=== PATIENT | female | born 1985 | race Caucasian/White ===

== ENCOUNTER 2016-03-17 12:30 | Emergency (ER) | payer OTHER ==
[~2016-03-17] VITALS: Ht 170.2 cm; Wt 86.2 kg
[~2016-03-17 12:30] MED LIST: ADVAIR DISKU 11 UNIT INH; AVELOX400 MG PO; FLOVENT HF0.044 MG/A INH; FLOVENT HF0.11 MG/Ac INH; FLUVOXAMINE MA100 MG PO; GABAPENTIN300 MG PO; IBUPROFEN800 M1 PO; METHADONE10 MG/1 M2 PO; METHIMAZOLE5 MG PO; MOTRIN800 MG PO; NEURONTIN600 M1 PO; PERCOCET 5-3251 EACH PO; PROAIR HFA8.5 GM INH; QUETIAPINE FUM400 MG PO; QUETIAPINE FUMA50 MG PO; TYLENOL #31 TAB PO
[2016-03-17 12:40] VITALS: BP 104/63
--- NOTE | 2016-03-17 12:51 | ED GI/GU/ABDOMINAL COMPLAINT ---
History of Present Illness General Chief Complaint: Female Urogenital Problems Stated Complaint: PT THINKS SHE HAVING A MISCARRIAGE Source: patient Exam Limitations: no limitations Vital Signs & Intake/Output Vital Signs & Intake/Output Vital Signs Date Time Temp Pulse Resp B/P Pulse O2 O2 Flow FiO2 Ox Delivery Rate 03/17 1345 Room Air Room Air 03/17 1240 98.0 96 20 104/63 98 Room Air Allergies Coded Allergies: amoxicillin (Severe, RASH 06/21/15) shellfish derived (Severe, RASH 06/21/15) Penicillins (RASH 06/21/15) latex (RASH 06/21/15) Uncoded Allergies: SEAFOOD (Severe, RASH 06/21/15) Reconcile Medications Albuterol Sulfate (Albuterol Sulfate Hfa) 90 MCG HFA.AER.AD 2 PUFF INH Q4-6 PRN PRN SHORTNESS OF BREATH (Reported) 90 MCG PER PUFF Doxylamine/Pyridoxine HCl (Diclegis Dr 10-10 MG Tablet) 10 MG-10 MG TABLET.DR 2 TAB PO QPM NAUSEA (Reported) Fluticasone Propionate (Flovent Hfa) 0.11 MG/Actuation ALBINO 2 PUFF INH BID COPD /ASTHMA (Reported) 110 MCG PER PUFF Fluticasone-Salmeterol (Advair 100-50 Diskus) (Unknown Strength) BLST.W.DEV ( Unknown Dose) INH BID BREATHING PROBLEMS (Reported) Fluvoxamine Maleate 100 MG TAB 100 MG PO BID ANXIETY (Reported) Gabapentin 300 MG CAPSULE 600 MG PO TID DEPRESSION (Reported) Gabapentin (Neurontin) 600 MG TABLET 1 TAB PO QHS Neuropathy Ibuprofen 800 MG TABLET 1 TAB PO 4 TIMES/DAY PRN PAIN Methadone HCl 10 MG/ML ORAL.CONC 150 MG PO DAILY RECOVERY (Reported) Pnv#67/Iron Ps/FA Cmb#1/Dha (Vitafol Ultra Softgel) 29 MG IRON-1 MG-200 MG CAPSULE 1 CAP PO DAILY SUPPLEMENT (Reported) Quetiapine Fumarate 400 MG TAB 400 MG PO BID ANXIETY (Reported) Quetiapine Fumarate 50 MG TAB 100 MG PO DAILY PRN ANXIETY (Reported) Triage Note: PT TO ED C/O VAGINAL BLEEDING SINCE THIS AM. STATES SHE WOKE UP 30 MINS AGO AND NOTICED BLOOD. PT STATES SHE NOTICED A CLOT. DENIES ABD CRAMPING OR ABD PAIN AT THIS TIME. . PT IS 12 WEEKS , DUE SEPTEMBER 24, 2016. OBGYN IS DR TAVARES. Triage Nurses Notes Reviewed? yes ? Y Is pt currently ? No Duration: constant Timing: single episode today Quality/Severity: moderate Severity Numbers: 5 Location: vaginal Radiation: no radiation Activities at Onset: none HPI: Patient is a 30-year-old female who is a approximate 12 weeks and which she is followed by RN ENTEROSTOMAL Dr. Tavares who states that this morning she woke up one hour prior to arrival and noticed spontaneous acute vaginal bleeding. Patient does state that she noticed 1 mild clot pass however no passes of significant tissue. States that while she is now in the emergency room she has generalized suprapubic abdominal cramping. Patient has only used one pad for her bleeding. Patient did have nausea without emesis She denies any fever, chills, vomiting, dysuria hematuria back pain lightheaded sensation and dizziness. (DOV MARIE) Past History Travel History Traveled to [place] past 21 day No Medical History Any Pertinent Medical History? see below for history Neurological: "TICKS AND EYE TWITCHES" EENT: NONE Cardiovascular: hyperlipidemia, "IRREGULAR HEART BEAT" Respiratory: asthma Gastrointestinal: NONE Hepatic: NONE Renal: NONE Musculoskeletal: NONE Psychiatric: anxiety, bipolar disease, depression, TRICHOTILLOMANIA METHADONE Endocrine: Grave's disease Blood Disorders: NONE Cancer(s): NONE Surgical History Surgical History: non-contributory, N Psychosocial History Who do you live with Mother What is your primary language Northern Irish Tobacco Use: Current Daily Use Daily Tobacco Use Amount/Type: =< 4 Cigarettes daily ETOH Use: denies use Illicit Drug Use: denies illicit drug use Family History Family History, If Any: MOTHER Relation not specified for: FH: diabetes mellitus Viktoria thyroiditis Hx Contributory? No (DOV MARIE) Review of Systems Review of Systems Constitutional: Reports: no symptoms. EENTM: Reports: no symptoms. Respiratory: Reports: no symptoms. Cardiovascular: Reports: no symptoms. GI: Reports: see HPI. Genitourinary: Reports: see HPI. Musculoskeletal: Reports: no symptoms. Skin: Reports: no symptoms. Neurological/Psychological: Reports: no symptoms. Hematologic/Endocrine: Reports: see HPI, bleeding. Immunologic/Allergic: Reports: no symptoms. All Other Systems: Reviewed and Negative (DOV MARIE) Physical Exam Physical Exam General Appearance: no apparent distress, alert Gastrointestinal: normal bowel sounds, soft, non-tender, no organomegaly Comments: Well-developed well-nourished person in no acute distress HEENT: Normal EENT exam, Neck: Supple, no lymphadenopathy, normal range of motion without pain or tenderness Back: Nontender, no CVA tenderness. Cardiovascular: Regular rate and rhythms no murmurs rubs or gallops, normal JVP Respiratory: Chest nontender. No respiratory distress.breath sounds clear to auscultation bilaterally Abdomen: Soft, nontender nondistended, no appreciable organomegaly. Normal bowel sounds. No ascites Extremity: No edema, no calf tenderness to palpation, normal and equal pulses. Neuro: Alert oriented x3, motor sensory normal, Skin: No appreciable rash on exposed skin, skin is warm and dry. Psych: Mood and affect is normal, memory and judgment is normal. Core Measures ACS in differential dx? No Severe Sepsis Present: No Septic Shock Present: No (DEJUAN SWANN,DOV) Progress Differential Diagnosis: AAA, AMI, appendicitis, biliary colic, bowel obstruction , colon cancer, cholecystitis, diverticulitis, ectopic , endometritis, esophageal varices, gastritis, hepatitis, hernia, hemorrhoids, ischemic bowel, inflamm bowel dis, intrauterine , kidney stone, Catia-Nima tear, ovarian cyst, ovarian torsion, pancreatitis, PID/cervicitis, peptic ulcer, PUD/ GERD, perforated viscous, SBO, threatened AB, UTI/pyelo Plan of Care: Orders Procedure Date/time Status URINALYSIS 03/17 1323 Complete PARTIAL THROMBOPLASTIN TIME 03/17 1323 Complete PROTHROMBIN TIME 03/17 1323 Complete COMPREHENSIVE METABOLIC PANEL 03/17 1323 Complete CBC WITHOUT DIFFERENTIAL 03/17 1323 Complete TYPE & SCREEN (NOT X-MATCH) 03/17 1323 Complete Laboratory Tests 03/17/16 1359: Anion Gap 9, Estimated GFR > 60, BUN/Creatinine Ratio 18.0, Glucose 76, Calcium 9.5, Total Bilirubin 0.4, AST 21, ALT 39, Alkaline Phosphatase 49, Total Protein 6.8, Albumin 3.9, Globulin 2.9, Albumin/Globulin Ratio 1.3, PT 11.6, INR 1.11, APTT 27, CBC w Diff NO MAN DIFF REQ, RBC 4.19 L, MCV 87.8, MCH 29.7, RDW 13.4, MPV 8.2, Gran % 59.5, Lymphocytes % 32.4, Monocytes % 6.6, Eosinophils % 1.3, Basophils % 0.2, Absolute Granulocytes 4.9, Absolute Lymphocytes 2.6, Absolute Monocytes 0.5, Absolute Eosinophils 0.1, Absolute Basophils 0, PUBS MCHC 33.9 03/17/16 1345: Urine Color CARLEY, Urine Clarity CLDY H, Urine pH 6.0, Ur Specific North >= 1.030, Urine Protein 100 H, Urine Ketones TRACE H, Urine Nitrite NEG, Urine Bilirubin NEG, Urine Urobilinogen 1.0, Ur Leukocyte Esterase SMALL H, Ur Microscopic SEDIMENT EXAMINED, Urine RBC 50-75 H, Urine WBC 15-25 H, Ur Epithelial Cells MANY H, Urine Hemoglobin LARGE H, Urine Glucose NEG Patient currently is in no apparent distress. Ultrasound showed a viable . Blood work was obtained type and screen is pending. Prior to type and screen being complete patient wanted to leave which I strongly advised patient to stay however she still adamantly wanted to leave the emergency room. Patient has follow-up appointment with Dr. Tavares tomorrowon advised patient to be evaluated tomorrow for concerns of necessity of RHOGAM Patient signed AMA form and was discussed with risks and benefits of leaving the emergency room and she understood Discussed disposition plan with Dr. GOLDSMITH (DEJUAN SWANN,DOV) Diagnostic Imaging: Viewed by Me: Ultrasound. Radiology Impression: SEE COMMENTS Initial ED EKG: none Comments: PATIENT: JERAD VILLELA PRESENT AGE: 30 PATIENT ACCOUNT NO: [id number] : 84 LOCATION: [facility] ORDERING PHYSICIAN: DOV SWANN SERVICE DATE: 03/17/16 EXAM TYPE: US - US- VIABILITY EXAMINATION: US , VIABILITY CLINICAL INFORMATION: Vaginal bleeding during . Evaluate viability. COMPARISON: Pelvic ultrasound from 02/15/2016. TECHNIQUE: Sonographic imaging of the pelvis was performed using a curved 5 MHz transabdominal transducer. FINDINGS: There is a single viable intrauterine gestation. The heart rate is 159 bpm. A normal amniotic fluid volume is seen. No evidence of subchorionic hemorrhage. The cervical canal is suboptimally visualized but measures at least 2.4 cm in length. The following measurements were acquired - Biparietal diameter, 2.5 cm (gestational age of 13 weeks, 3 days) Head circumference, 8.71 cm (gestational age of 14 weeks) Abdominal circumference, 7.99 cm (gestational age of 14 weeks, 3 days) Femur length, 1.3 cm (gestational age of 13 weeks, 6 days) Overall, the ultrasound determined age is 14 weeks, 2 days. The estimated weight is 90 g (+/- 13 g) which is at the 98th percentile based on LMP. The left ovary is not visualized. The normal right ovary measures 2.6 x 1 x 1.7 cm. Color Doppler images show normal arterial flow within the ovary. No pelvic free fluid. IMPRESSION: 1. Single viable intrauterine gestation. 2. Fetus appears relatively large for clinical dates (98th percentile). (DOV MARIE) Departure Departure Disposition: LEFT AGAINST MEDICAL ADVICE Condition: Stable Clinical Impression Primary Impression: Vaginal bleeding in Referrals: UNKNOWN (PCP/Family) Additional Instructions: As discussed YOU ARE leaving AGAINST MEDICAL ADVICE. Please follow-up with her RN ENTEROSTOMAL tomorrow and outpatient treatment. If symptoms worsen return to emergency room Departure Forms: Customer Survey General Discharge Information (DOV MARIE) PA/HULL MOLDER Co-Sign Statement Statement: ED Attending supervision documentation- [x] I saw and evaluated the patient. I have also reviewed all the pertinent lab results and diagnostic results. I agree with the findings and the plan of care as documented in the PA's/HULL MOLDER's documentation. [] I have reviewed the ED Record and agree with the PA's/HULL MOLDER's documentation. [] Additions or exceptions (if any) to the PAs/HULL MOLDER's note and plan are summarized below: [] (SANGITA GOLDSMITH DO
[2016-03-17] MEDS ORDERED: DICLEGIS DR 101 EACH PO (14:09)
[2016-03-17] MEDS ORDERED: VITAFOL ULTRA1 EACH PO (14:09)
--- NOTE | 2016-03-17 14:09 | ULTRASOUND REPORT ---
EXAMINATION: US , VIABILITY CLINICAL INFORMATION: Vaginal bleeding during . Evaluate viability. COMPARISON: Pelvic ultrasound from 02/15/2016. TECHNIQUE: Sonographic imaging of the pelvis was performed using a curved 5 MHz transabdominal transducer. FINDINGS: There is a single viable intrauterine gestation. The heart rate is 159 bpm. A normal amniotic fluid volume is seen. No evidence of subchorionic hemorrhage. The cervical canal is suboptimally visualized but measures at least 2.4 cm in length. The following measurements were acquired - Biparietal diameter, 2.5 cm (gestational age of 13 weeks, 3 days) Head circumference, 8.71 cm (gestational age of 14 weeks) Abdominal circumference, 7.99 cm (gestational age of 14 weeks, 3 days) Femur length, 1.3 cm (gestational age of 13 weeks, 6 days) Overall, the ultrasound determined age is 14 weeks, 2 days. The estimated weight is 90 g (+/- 13 g) which is at the 98th percentile based on LMP. The left ovary is not visualized. The normal right ovary measures 2.6 x 1 x 1.7 cm. Color Doppler images show normal arterial flow within the ovary. No pelvic free fluid. IMPRESSION: 1. Single viable intrauterine gestation. 2. Fetus appears relatively large for clinical dates (98th percentile).
[2016-03-17 14:10] LABS: ABSOLUTE BASOPHIL COUNT 0 /CUMM (0.0-0.2); ABSOLUTE EOSINOPHIL COUNT 0.1 /CUMM (0.0-0.7); ABSOLUTE GRANULOCYTE CT 4.9 /CUMM (1.4-6.5); ABSOLUTE LYMPH COUNT 2.6 /CUMM (1.2-3.4); ABSOLUTE MONOCYTE COUNT 0.5 /CUMM (0.10-0.60); BASOPHIL % 0.2 % (0.0-2.0); EOSINOPHIL % 1.3 % (0-5); GRANULOCYTE % 59.5 % (42.2-75.2); HEMATOCRIT 36.8 % (37-47); MEAN CORPUSCULAR HGB 29.7 PG (27.0-31.0); MEAN CORPUSCULAR HGB CONC 33.9 G/DL (33.0-37.0); MEAN CORPUSCULAR VOLUME 87.8 FL (81.0-99.0); MEAN PLATELET VOLUME 8.2 FL (7.4-10.4); PLATELET COUNT 229 /CUMM (130-400); RBC DISTRIBUTION WIDTH 13.4 % (11.5-14.5); RED BLOOD CELL CT 4.19 /CUMM (4.20-5.40); WHITE BLOOD CELL COUNT 8.2 /CUMM (4.8-10.8)
[2016-03-17 14:16] LABS: PT 11.6 SEC (9.4-12.5); PTT 27 SEC (25-37)
== END 2016-03-17 14:36 | disposition left against medical advice (07) ==
LOC: ERH 12:30
PROVIDERS: Physician Assistant
DX: O20.9 Hemorrhage in early pregnancy, unspecified (principal); O99.332 Smoking (tobacco) complicating pregnancy, second trimester; F17.210 Nicotine dependence, cigarettes, uncomplicated
CPT/HCPCS: 81001

== ENCOUNTER 2016-04-19 18:53 | Emergency (ER) | payer OTHER ==
[~2016-04-19 18:53] MED LIST changes: +DICLEGIS DR 101 EACH PO; +VITAFOL ULTRA1 EACH PO
[2016-04-19 19:01] VITALS: BP 119/70
--- NOTE | 2016-04-19 19:01 | ED SKIN/ALLERGY COMPLAINT ---
History of Present Illness General Chief Complaint: Skin Rash/ Abcess Stated Complaint: SCABIES Source: patient Exam Limitations: no limitations Vital Signs & Intake/Output Vital Signs & Intake/Output Vital Signs Date Time Temp Pulse Resp B/P Pulse O2 O2 Flow FiO2 Ox Delivery Rate 04/19 1901 97.0 86 20 119/70 97 Room Air Allergies Coded Allergies: amoxicillin (Severe, RASH 06/21/15) shellfish derived (Severe, RASH 06/21/15) Penicillins (RASH 06/21/15) latex (RASH 06/21/15) Reconcile Medications Albuterol Sulfate (Proair Hfa) 90 MCG HFA.AER.AD 2 PUF INH Q4-6 PRN PRN ASTHMA (Reported) Albuterol Sulfate (Ventolin Hfa) 90 MCG HFA.AER.AD 2 PUF INH Q4-6 PRN PRN WHEEZING/SHORTNESS OF BREATH Diphenhydramine HCl (Benadryl) 25 MG CAPSULE 1-2 CAP PO Q8 PRN itch Doxylamine/Pyridoxine HCl (Diclegis Dr 10-10 MG Tablet) 10 MG-10 MG TABLET.DR 2 TAB PO QPM NAUSEA (Reported) Fluticasone Propionate (Flovent Hfa) 110 MCG/ACTUATION AER.W.ADAP 2 PUF INH BID ASTHMA (Reported) Fluticasone-Salmeterol (Advair 100-50 Diskus) (Unknown Strength) BLST.W.DEV ( Unknown Dose) INH BID ASTHMA (Reported) Methadone HCl 10 MG/ML ORAL.CONC 150 MG PO DAILY RECOVERY (Reported) Permethrin 5 % CREAM..G. 1 BARBARA TOP ONCE scabies massage into skin from head to soles of feet one time, leave on for 8-14 hours then remove by thorough washing Pnv#67/Iron Ps/FA Cmb#1/Dha (Vitafol Ultra Softgel) 29 MG IRON-1 MG-200 MG CAPSULE 1 CAP PO DAILY SUPPLEMENT (Reported) Quetiapine Fumarate 400 MG TABLET 1 TAB PO QPM MENTAL HEALTH (Reported) Quetiapine Fumarate 50 MG TABLET 1 TAB PO TID PRN MENTAL HEALTH (Reported) Triage Nurses Notes Reviewed? yes HPI: Patient is a 30-year-old female presents complaining of scabies. Patient reports that the apartment that she is staying in the previous tenants were diagnosed with scabies. Patient developed severely pruritic rash diffusely. Patient was seen previously, started on a cream that she had on her body for 4 minutes then washed off. Patient reports that the rash and severe itching continues. Patient also washed all of her clothing and bedding in hot water. Patient is currently . (ASHISH RUBIN) Past History Travel History Traveled to [place] past 21 day No Medical History Any Pertinent Medical History? see below for history Neurological: "TICKS AND EYE TWITCHES" EENT: NONE Cardiovascular: hyperlipidemia, "IRREGULAR HEART BEAT" Respiratory: asthma Gastrointestinal: NONE Hepatic: NONE Renal: NONE Musculoskeletal: NONE Psychiatric: anxiety, bipolar disease, depression, TRICHOTILLOMANIA METHADONE Endocrine: Grave's disease Blood Disorders: NONE Cancer(s): NONE Surgical History Surgical History: non-contributory, N Psychosocial History Who do you live with Mother What is your primary language Amharic Family History Family History, If Any: MOTHER Relation not specified for: FH: diabetes mellitus Viktoria thyroiditis Hx Contributory? No (ASHISH RUBIN) Review of Systems Review of Systems Constitutional: Denies: chills, fever. Respiratory: Reports: no symptoms. Cardiovascular: Reports: no symptoms. GI: Reports: no symptoms. Musculoskeletal: Reports: no symptoms. Skin: Reports: see HPI. Neurological/Psychological: Reports: no symptoms. Hematologic/Endocrine: Reports: no symptoms. Immunologic/Allergic: Reports: no symptoms. (ASHISH RUBIN) Physical Exam Physical Exam General Appearance: well developed/nourished, alert, awake Head: atraumatic, normal appearance Eyes: Bilateral: normal appearance, PERRL, EOMI. Ears, Nose, Throat: hearing grossly normal Neck: normal inspection, supple, full range of motion Respiratory: no respiratory distress Back: normal inspection, normal range of motion Extremities: normal range of motion Neurologic/Psych: no motor/sensory deficits, awake, alert, oriented x 3 Skin: diffuse macular rash with some areas of burrowing and excoriations. (ASHISH RUBIN) Progress Differential Diagnosis: abscess/cellulitis, allergic reaction, contact dermatitis, erythema multiforme, urticaria, scabies Plan of Care: Patient nontoxic appearing. No signs of superimposed bacterial infection. Discussed with Dr. Evangelista. Permethrin is category B, patient was on lindane previously, only used for 4-5 minutes and then washed off. Will provide patient with prescription for permethrin and have her follow-up with her acrobatic dancer. (ASHISH RUBIN) Departure Departure Time of Disposition: 1919 Disposition: HOME OR SELF CARE Condition: Stable Clinical Impression Primary Impression: Scabies Referrals: UNKNOWN (PCP/Family) Additional Instructions: Use the body wash as directed, repeat in one week. Take Benadryl as directed. Return to the emergency department if any worsening of symptoms. Departure Forms: Customer Survey General Discharge Information Prescriptions: Current Visit Scripts Permethrin 1 BARBARA TOP ONCE #60 GM Ref 1 massage into skin from head to soles of feet one time, leave on for 8-14 hours then remove by thorough washing Diphenhydramine HCl (Benadryl) 1-2 CAP PO Q8 PRN itch #30 CAP Albuterol Sulfate (Ventolin Hfa) 2 PUF INH Q4-6 PRN PRN WHEEZING/SHORTNESS OF BREATH #1 INHAL (ASHISH RUBIN) PA/OCCUPATIONAL THERAPY SUPERVISOR Co-Sign Statement Statement: ED Attending supervision documentation- [] I saw and evaluated the patient. I have also reviewed all the pertinent lab results and diagnostic results. I agree with the findings and the plan of care as documented in the PA's/OCCUPATIONAL THERAPY SUPERVISOR's documentation. [X] I have reviewed the ED Record and agree with the PA's/OCCUPATIONAL THERAPY SUPERVISOR's documentation. [] Additions or exceptions (if any) to the PAs/OCCUPATIONAL THERAPY SUPERVISOR's note and plan are summarized below: [] (IRINA POLANCO,GURPREET Patel)
[2016-04-19] MEDS ORDERED: QUETIAPINE FUM400 M1 PO (19:19)
[2016-04-19] MEDS ORDERED: QUETIAPINE FUMA50 M1 PO (19:20)
[2016-04-19] MEDS ORDERED: FLOVENT HFA12 G1 INH (19:23)
[2016-04-19] MEDS ORDERED: ADVAIR 100-501 EACH INH (19:23)
[2016-04-19] MEDS ORDERED: PERMETHRIN60 GM TOP (19:25)
[2016-04-19] MEDS ORDERED: BENADRYL25 MG PO (19:25)
[2016-04-19] MEDS ORDERED: VENTOLIN HFA18 GM INH (19:25)
== END 2016-04-19 19:44 ==
LOC: ERH 18:53
DX: B86 Scabies (principal)

== ENCOUNTER 2016-04-22 11:47 | Emergency (ER) | payer OTHER ==
[~2016-04-22] VITALS: Ht 170.2 cm; Wt 86.2 kg
[~2016-04-22 11:47] MED LIST changes: +ADVAIR 100-501 EACH INH; +BENADRYL25 MG PO; +FLOVENT HFA12 G1 INH; +PERMETHRIN60 GM TOP; +QUETIAPINE FUM400 M1 PO; +QUETIAPINE FUMA50 M1 PO; +VENTOLIN HFA18 GM INH
[2016-04-22 11:53] VITALS: BP 127/65
--- NOTE | 2016-04-22 11:53 | ED INFLUENZA/URI COMPLAINT ---
History of Present Illness General Chief Complaint: Upper Respiratory Sx/Fever Stated Complaint: COUGH X3 DAYS,16 WEEKS PREG Vital Signs & Intake/Output Vital Signs & Intake/Output Vital Signs Date Time Temp Pulse Resp B/P Pulse O2 O2 Flow FiO2 Ox Delivery Rate 04/22 1153 97.5 84 18 127/65 99 Room Air Allergies Coded Allergies: amoxicillin (Severe, RASH 06/21/15) shellfish derived (Severe, RASH 06/21/15) Penicillins (RASH 06/21/15) latex (RASH 06/21/15) Reconcile Medications Albuterol Sulfate (Proair Hfa) 90 MCG HFA.AER.AD 2 PUF INH Q4-6 PRN PRN ASTHMA (Reported) Albuterol Sulfate (Ventolin Hfa) 90 MCG HFA.AER.AD 2 PUF INH Q4-6 PRN PRN WHEEZING/SHORTNESS OF BREATH Azithromycin (Zithromax) 250 MG TABLET 1 DP PO AD uri 2 the first day followed by 1 for days 2-5 Diphenhydramine HCl (Benadryl) 25 MG CAPSULE 1-2 CAP PO Q8 PRN itch Doxylamine/Pyridoxine HCl (Diclegis Dr 10-10 MG Tablet) 10 MG-10 MG TABLET.DR 2 TAB PO QPM NAUSEA (Reported) Fluticasone Propionate (Flovent Hfa) 110 MCG/ACTUATION AER.W.ADAP 2 PUF INH BID ASTHMA (Reported) Fluticasone-Salmeterol (Advair 100-50 Diskus) (Unknown Strength) BLST.W.DEV ( Unknown Dose) INH BID ASTHMA (Reported) Methadone HCl 10 MG/ML ORAL.CONC 150 MG PO DAILY RECOVERY (Reported) Permethrin 5 % CREAM..G. 1 BARBARA TOP ONCE scabies massage into skin from head to soles of feet one time, leave on for 8-14 hours then remove by thorough washing Pnv#67/Iron Ps/FA Cmb#1/Dha (Vitafol Ultra Softgel) 29 MG IRON-1 MG-200 MG CAPSULE 1 CAP PO DAILY SUPPLEMENT (Reported) Quetiapine Fumarate 400 MG TABLET 1 TAB PO QPM MENTAL HEALTH (Reported) Quetiapine Fumarate 50 MG TABLET 1 TAB PO TID PRN MENTAL HEALTH (Reported) Triage Note: 30 Y/O FEMALE C/O COUGH X 3 DAYS, "I THINK I HAVE BRONCHITIS". STATES SHE HAS BEEN HAVING FEVERS AT HOME, LAST DOSE TYLENOL THIS AM 1000. CURRENTLY 16 WEEKS , OB DR FU: EDC 09/24/16. PT DENIES CURRENT SEASONAL [place] BUNDLER RELATED COMPLAINTS. AFEBRILE : Yes Patient currently breastfeeds: No Past History Travel History Traveled to [place] past 21 day No Medical History Neurological: "TICKS AND EYE TWITCHES" EENT: NONE Cardiovascular: hyperlipidemia, "IRREGULAR HEART BEAT" Respiratory: asthma Gastrointestinal: NONE Hepatic: NONE Renal: NONE Musculoskeletal: NONE Psychiatric: anxiety, bipolar disease, depression, TRICHOTILLOMANIA METHADONE Endocrine: Grave's disease Blood Disorders: NONE Cancer(s): NONE Surgical History Surgical History: non-contributory, N Psychosocial History Who do you live with Mother What is your primary language Mongolian Tobacco Use: Current Daily Use Daily Tobacco Use Amount/Type: => 5 Cigarettes daily Family History Family History, If Any: MOTHER Relation not specified for: FH: diabetes mellitus Viktoria thyroiditis Departure Departure Condition: Stable Referrals: UNKNOWN (PCP/Family) Departure Forms: Customer Survey General Discharge Information Prescriptions: Current Visit Scripts Azithromycin (Zithromax) 1 DP PO AD #6 TAB 2 the first day followed by 1 for days 2-5
--- NOTE | 2016-04-22 12:04 | ED INFLUENZA/URI COMPLAINT ---
History of Present Illness General Chief Complaint: Upper Respiratory Sx/Fever Stated Complaint: COUGH X3 DAYS,16 WEEKS PREG Source: patient, old records Exam Limitations: no limitations Vital Signs & Intake/Output Vital Signs & Intake/Output Vital Signs Date Time Temp Pulse Resp B/P Pulse O2 O2 Flow FiO2 Ox Delivery Rate 04/22 1153 97.5 84 18 127/65 99 Room Air Allergies Coded Allergies: amoxicillin (Severe, RASH 06/21/15) shellfish derived (Severe, RASH 06/21/15) Penicillins (RASH 06/21/15) latex (RASH 06/21/15) Reconcile Medications Albuterol Sulfate (Proair Hfa) 90 MCG HFA.AER.AD 2 PUF INH Q4-6 PRN PRN ASTHMA (Reported) Albuterol Sulfate (Ventolin Hfa) 90 MCG HFA.AER.AD 2 PUF INH Q4-6 PRN PRN WHEEZING/SHORTNESS OF BREATH Azithromycin (Zithromax) 250 MG TABLET 1 DP PO AD uri 2 the first day followed by 1 for days 2-5 Diphenhydramine HCl (Benadryl) 25 MG CAPSULE 1-2 CAP PO Q8 PRN itch Doxylamine/Pyridoxine HCl (Diclegis Dr 10-10 MG Tablet) 10 MG-10 MG TABLET.DR 2 TAB PO QPM NAUSEA (Reported) Fluticasone Propionate (Flovent Hfa) 110 MCG/ACTUATION AER.W.ADAP 2 PUF INH BID ASTHMA (Reported) Fluticasone-Salmeterol (Advair 100-50 Diskus) (Unknown Strength) BLST.W.DEV ( Unknown Dose) INH BID ASTHMA (Reported) Methadone HCl 10 MG/ML ORAL.CONC 150 MG PO DAILY RECOVERY (Reported) Permethrin 5 % CREAM..G. 1 BARBARA TOP ONCE scabies massage into skin from head to soles of feet one time, leave on for 8-14 hours then remove by thorough washing Pnv#67/Iron Ps/FA Cmb#1/Dha (Vitafol Ultra Softgel) 29 MG IRON-1 MG-200 MG CAPSULE 1 CAP PO DAILY SUPPLEMENT (Reported) Quetiapine Fumarate 400 MG TABLET 1 TAB PO QPM MENTAL HEALTH (Reported) Quetiapine Fumarate 50 MG TABLET 1 TAB PO TID PRN MENTAL HEALTH (Reported) Triage Note: 30 Y/O FEMALE C/O COUGH X 3 DAYS, "I THINK I HAVE BRONCHITIS". STATES SHE HAS BEEN HAVING FEVERS AT HOME, LAST DOSE TYLENOL THIS AM 1000. CURRENTLY 16 WEEKS , OB DR FU: EDC 09/24/16. PT DENIES CURRENT CARTRIDGE FILLER RELATED COMPLAINTS. AFEBRILE Triage Nurses Notes Reviewed? yes Onset: Gradual Duration: day(s): (3), constant Timing: recent history Severity: mild Severity Numbers: 3 Prior Episodes/Possible Cause: occassional episodes No Modifying Factors: none Associated Symptoms: cough, nasal congestion, nasal drainage : Yes Patient currently breastfeeds: No HPI: 30-year-old female currently 16 weeks presents to emergency room complaining of a nonproductive cough for the past 3 days associated with rhinorrhea, congestion and subjective fevers for which she's been taking Tylenol with relief. She is an active smoker, she denies shortness of breath chest pain hemoptysis or sputum production. No nausea vomiting or diarrhea. She presents with her boyfriend who is fairly being seen as well for similar symptoms. No recent travel. No modifying factors or associated symptoms otherwise symptoms are constant and gradual in onset and nonradiating (DOV RUEDA) Past History Travel History Traveled to [place] past 21 day No Medical History Any Pertinent Medical History? see below for history Neurological: "TICKS AND EYE TWITCHES" EENT: NONE Cardiovascular: hyperlipidemia, "IRREGULAR HEART BEAT" Respiratory: asthma Gastrointestinal: NONE Hepatic: NONE Renal: NONE Musculoskeletal: NONE Psychiatric: anxiety, bipolar disease, depression, TRICHOTILLOMANIA METHADONE Endocrine: Grave's disease Blood Disorders: NONE Cancer(s): NONE Surgical History Surgical History: non-contributory, N Psychosocial History Who do you live with Mother What is your primary language Chilean Tobacco Use: Current Daily Use Daily Tobacco Use Amount/Type: => 5 Cigarettes daily Family History Family History, If Any: MOTHER Relation not specified for: FH: diabetes mellitus Viktoria thyroiditis Hx Contributory? No (DOV RUEDA) Review of Systems Review of Systems Constitutional: Reports: see HPI. All Other Systems: Reviewed and Negative Comments Review of systems: See HPI, All other systems negative. Constitutional, no chills no fever, no malaise HEENT: no sore throat congestion, no ear pain Cardiovascular: No chest pain , no palpitation , no orthopnea Skin, no rashes, no change in skin Respiratory: No dyspnea no cough no sputum no hemoptysis GI: No nausea no vomiting, no diarrhea, no bloating/constipation : No dysuria No hematuria, no frequency, no discharge Muscle skeletal: No joint pain, no joint swelling, no back pain, no neck pain, Neurologic: No numbness no confusion, no headache Psych: No stress Heme/endocrine: No bruising no bleeding no polyuria Immunology: No lymphadenopathy, (DOV RUEDA) Physical Exam Physical Exam General Appearance: well developed/nourished, no apparent distress, alert, awake Ears, Nose, Throat: normal ENT inspection, moist mucous membrane, hearing grossly normal, Tympanic normal, pharynx normal Comments: Well-developed well-nourished patient in no apparent distress. Head/Face: Atraumatic, no maxillary/frontal sinus tenderness, no facial swelling Eyes: PERRL, EOMI, no conjunctival injection. No nystagmus Ear:External auditory canal and Tympanic membranes clear, no erythema, no FB. Nose: atraumatic.Normal inspection: No bleeding, no septal hematoma Throat: Moist mucous membranes.Pharynx normal. No pharyngeal erythema/exudate seen. No stridor/drooling or assymetry. No swelling or edema. Neck: Supple, no lymphadenopathy, FROM Back: FROM, Nontender Cardiovascular: Regular rate and rhythms no murmurs rubs or gallops, Respiratory: Chest nontender.There were no bony deformities, no asymmetry. No respiratory distress. Patient speaking in full complete sentences. Breath sounds clear to auscultation bilaterally: NO W/R/R Extremities: full range of motion Neuro: Alert and oriented x3 Skin: Warm & dry;No appreciable rash on exposed skin Psych: Mood affect normal, normal memory normal judgment. Core Measures Severe Sepsis Present: No Septic Shock Present: No (DOV RUEDA) Progress Differential Diagnosis: influenza, otitis, pneumonia, pharyngitis, sinusitis, BRONCHITIS Plan of Care: Patient is nontoxic appearing afebrile speaking full complete sentences. Smoking cessation was discussed with the patient at length I do not believe the patient requires any workup at this time symptoms have been present for greater than 72 hours, prescription for antibiotics advise supportive care over-the- counter medications fluids and follow up with her primary care physician on Monday as her off her questions they feel comfortable with plan cleared for discharge Initial ED EKG: none (DOV RUEDA) Departure Departure Time of Disposition: 1214 Disposition: HOME OR SELF CARE Condition: Stable Clinical Impression Primary Impression: URI (upper respiratory infection) Referrals: UNKNOWN (PCP/Family) Additional Instructions: zpak as directed. tylenol as needed for fever or bodyaches. drink plenty of fluids. follow upwith your pmd on monday,return with any concerns. [facility] Departure Forms: Customer Survey General Discharge Information Prescriptions: Current Visit Scripts Azithromycin (Zithromax) 1 DP PO AD #6 TAB 2 the first day followed by 1 for days 2-5 (DOV RUEDA) PA/COLLECTION AGENT Co-Sign Statement Statement: ED Attending supervision documentation- [] I saw and evaluated the patient. I have also reviewed all the pertinent lab results and diagnostic results. I agree with the findings and the plan of care as documented in the PA's/COLLECTION AGENT's documentation. [X] I have reviewed the ED Record and agree with the PA's/COLLECTION AGENT's documentation. [] Additions or exceptions (if any) to the PAs/COLLECTION AGENT's note and plan are summarized below: [] (DONNELL POLANCO,TODD)
[2016-04-22] MEDS ORDERED: ZITHROMAX250 M2 PO (12:16)
== END 2016-04-22 12:19 ==
LOC: ERH 11:47
DX: O99.512 Diseases of the respiratory system complicating pregnancy, second trimester (principal); J06.9 Acute upper respiratory infection, unspecified; F17.210 Nicotine dependence, cigarettes, uncomplicated